=== PATIENT | male | born 1990 | race Hispanic/Latino ===

== ENCOUNTER 2024-01-02 12:31 | Emergency (ER) | payer BC, SELFPAY ==
[2024-01-02] MEDS ORDERED: ALPRAZOLAM 0.5 MG TABLET ONE (12:58)
--- NOTE | 2024-01-02 13:43 | EDPHYS ---
Physician Documentation [facility] Name: Negrito Walsh II Age: 33 yrs Sex: Male : 1990 Arrival Date: 01/02/2024 Time: 12:31 Bed 6 Private MD: ED Physician Barbara Carranza HPI: 01/01 13:05 This 33 yrs old Male presents to ER via Ambulatory with complaints of Chest sp3 Pain, High heart rate, Anxiety. 13:05 33-year-old male with no past medical history presents with anxiety and chest pain for sp3 the last 12 hours. Patient initially went to urgent care who advised him to come to the ED for further evaluation. He denies shortness of breath, prolonged travel, prolonged immobilization, known sick contacts, cough, congestion, headache, fever, abdominal pain, vomiting, diarrhea, syncope, near syncope, focal neurological deficit, trauma, or any other signs or symptoms on ROS at this time.. Historical: - Allergies: 12:49 No Known Allergies; cm10 - Home Meds: 12:49 None [Active]; cm10 - PMHx: 12:49 None; cm10 - PSHx: 12:49 None; cm10 - Immunization history:: Adult Immunizations up to date. - Infectious Disease History:: Denies. - Social history:: Smoking status: Reported history of juuling and/or vaping. ROS: 13:05 Constitutional: Negative for fever, chills, and weight loss, Eyes: Negative for injury, sp3 pain, redness, and discharge, Neck: Negative for injury, pain, and swelling, Respiratory: Negative for shortness of breath, cough, wheezing, and pleuritic chest pain, Abdomen/GI: Negative for abdominal pain, nausea, vomiting, diarrhea, and constipation, Back: Negative for injury and pain, MS/Extremity: Negative for injury and deformity, Skin: Negative for injury, rash, and discoloration, Neuro: Negative for headache, weakness, numbness, tingling, and seizure, Psych: Negative for depression, anxiety, suicide ideation, homicidal ideation, and hallucinations, Allergy/Immunology: Negative for hives, rash, and allergies, Endocrine: Negative for neck swelling, polydipsia, polyuria, polyphagia, and marked weight changes, 13:05 All other systems are negative, Exam: 13:05 Constitutional: This is a well developed, well nourished patient who is awake, alert, sp3 and in no acute distress. Head/Face: Normocephalic, atraumatic. Eyes: Pupils equal round and reactive to light, extra-ocular motions intact. Lids and lashes normal. Conjunctiva and sclera are non-icteric and not injected. Cornea within normal limits. Periorbital areas with no swelling, redness, or edema. ENT: Nares patent. No nasal discharge, no septal abnormalities noted. External auditory canals are clear. Oropharynx with no redness, swelling, or masses, exudates, or evidence of obstruction, uvula midline. Mucous membranes moist. Neck: Trachea midline, no thyromegaly or masses palpated, and no cervical lymphadenopathy. Supple, full range of motion without nuchal rigidity, or vertebral point tenderness. No Meningismus. Chest/axilla: Normal chest wall appearance and motion. Nontender with no deformity. No lesions are appreciated. Respiratory: Lungs have equal breath sounds bilaterally, clear to auscultation and percussion. No rales, rhonchi or wheezes noted. No increased work of breathing, no retractions or nasal flaring. Abdomen/GI: Soft, non-tender, with normal bowel sounds. No distension or tympany. No guarding or rebound. No evidence of tenderness throughout. Back: No spinal tenderness. No costovertebral tenderness. Full range of motion. Skin: Warm, dry with normal turgor. Normal color with no rashes, no lesions, and no evidence of cellulitis. MS/ Extremity: Pulses equal, no cyanosis. Neurovascular intact. Full, normal range of motion. Neuro: Awake and alert, GCS 15, oriented to person, place, time, and situation. Cranial nerves II-XII grossly intact. Motor strength 5/5 in all extremities. Sensory grossly intact. Cerebellar exam normal. Normal gait. 13:05 ECG was reviewed by the Attending Physician. EKG demonstrates sinus tachycardia 100 bpm with normal was, normal QRS, normal axis nonspecific diffuse ST's ST changes without evidence of acute ischemia. 13:21 Psych: Patient anxious. sp3 Vital Signs: 12:47 BP 148 / 88; Pulse 110; Resp 18; Temp 97.8(TE); Pulse Ox 100% on R/A; Weight 99.79 kg; cm10 Height 5 ft. 5 in. ; Pain 2/10; 13:15 BP 135 / 79; Pulse 80; Pulse Ox 95% on R/A; rs6 12:47 Body Mass Index 36.61 (99.79 kg, 165.1 cm) cm10 12:47 Pain Scale: Adult cm10 MDM: 12:46 Medical Screening Exam initiated sp3 13:21 Data reviewed: vital signs, nurses notes, lab test result(s), EKG, radiologic studies. sp3 ED course: 33-year-old male with anxiety and chest pain. I am not highly suspicious of acute coronary syndrome, PE, aortic pathology or vascular pathology, sepsis, shock or any other critical process. Workup will include EKG, chest x-ray and D-dimer and troponin. If workup negative we will set to discharge him home. Will also give Xanax for 0.5 mg p.o. for symptomatic relief.. 13:41 ED course: Chest x-ray and labs all normal including D-dimer and troponin. We will sp3 safely discharge patient home at this time.. 01/01 12:53 Order name: Troponin High Sensitivity; Complete Time: 13:41 sp3 01/01 12:53 Order name: D-Dimer; Complete Time: 13:41 sp3 01/01 12:46 Order name: XRAY Chest (1 view) sp3 01/01 12:46 Order name: EKG; Complete Time: 12:47 sp3 01/01 12:46 Order name: EKG - Nurse/Tech; Complete Time: 12:56 sp3 Administered Medications: 13:00 Drug: ALPRAZolam PO Tablet 0.5 mg PO once Route: PO; bp 13:56 Follow up: Response: No adverse reaction bp Disposition Summary: 01/02/24 13:42 Discharge Ordered Notes: Location: Home sp3 Condition: Stable sp3 Diagnosis - Anxiety, chest pain sp3 Followup: sp3 - With: Private Physician - When: Upon discharge from the Emergency Department - Reason: Continuance of care Discharge Instructions: - Discharge Summary Sheet sp3 - Managing Anxiety, Adult sp3 Forms: - Work release form bd - SBAR form bd - Medication Reconciliation Form sp3 - Antibiotic Education sp3 - Prescription Opioid Use sp3 - Patient Portal Instructions sp3 - Leadership Thank You Letter sp3 Signatures: Dispatcher [employer] EDJesus Stein, RN RN bp Barbara Carranza MD MD sp3 Shannon Villanueva, ROBBY RN cm10
--- NOTE | 2024-01-02 13:43 | ER ---
Nurse's Notes [facility] Name: Negrito Walsh II Age: 33 yrs Sex: Male : 1990 Arrival Date: 01/02/2024 Time: 12:31 Bed 6 Private MD: Diagnosis: Anxiety, chest pain Presentation: 01/01 12:47 Chief complaint: Patient states: Started having abdominal pain while at work and on his cm10 way home he started having chest pain and he felt his heart start racing. Pt states, "I think I am having a panic attack.". Coronavirus screen: Client denies travel out of the [place] in the last 14 days. Ebola Screen: Patient denies travel to an Ebola-affected area in the 21 days before illness onset. No symptoms or risks identified at this time. Initial Sepsis Screen: Does the patient meet any 2 criteria? HR > 90 bpm. Does the patient have a suspected source of infection? No. Patient's initial sepsis screen is negative. Risk Assessment: Do you want to hurt yourself or someone else? Patient reports no desire to harm self or others. Onset of symptoms was January 02, 2024. 12:47 Method Of Arrival: Ambulatory cm10 12:47 Acuity: ARNOLDO 3 cm10 Triage Assessment: 12:49 General: Appears in no apparent distress. comfortable, Behavior is anxious. Neuro: No cm10 deficits noted. Level of Consciousness is awake, alert, obeys commands, Oriented to person, place, time, situation, Appropriate for age. Respiratory: No deficits noted. Airway is patent Respiratory effort is even, unlabored, Respiratory pattern is regular, symmetrical. Historical: - Allergies: 12:49 No Known Allergies; cm10 - Home Meds: 12:49 None [Active]; cm10 - PMHx: 12:49 None; cm10 - PSHx: 12:49 None; cm10 - Immunization history:: Adult Immunizations up to date. - Infectious Disease History:: Denies. - Social history:: Smoking status: Reported history of juuling and/or vaping. Screenin:00 [facility] ED Fall Risk Assessment (Adult) History of falling in the last 3 months, bp including since admission No falls in past 3 months (0 pts) Confusion or Disorientation No (0 pts) Intoxicated or Sedated No (0 pts) Impaired Gait No (0 pts) Mobility Assist Device Used No (0 pt) Altered Elimination No (0 pt) Score/Fall Risk Level 0 - 2 = Low Risk. Abuse screen: Denies threats or abuse. Denies injuries from another. Nutritional screening: No deficits noted. Tuberculosis screening: No symptoms or risk factors identified. Assessment: 13:00 General: Appears in no apparent distress. Behavior is cooperative, appropriate for age, bp anxious. Pain: Pain does not radiate. Pain began 1 day ago. Neuro: No deficits noted. Cardiovascular: Rhythm is sinus tachycardia. Respiratory: No deficits noted. GI: No signs and/or symptoms were reported involving the gastrointestinal system. : No signs and/or symptoms were reported regarding the genitourinary system. EENT: No deficits noted. Derm: No deficits noted. Musculoskeletal: No deficits noted. Vital Signs: 12:47 BP 148 / 88; Pulse 110; Resp 18; Temp 97.8(TE); Pulse Ox 100% on R/A; Weight 99.79 kg; cm10 Height 5 ft. 5 in. ; Pain 2/10; 13:15 BP 135 / 79; Pulse 80; Pulse Ox 95% on R/A; rs6 12:47 Body Mass Index 36.61 (99.79 kg, 165.1 cm) cm10 12:47 Pain Scale: Adult cm10 ED Course: 12:34 Patient arrived in ED. im 12:35 Barbara Carranza MD is Attending Physician. sp3 12:49 Triage completed. cm10 12:49 Arm band placed on Patient placed in an exam room, on a stretcher. EKG completed in cm10 triage. Results shown to MD. 12:50 EKG done, by ED staff, reviewed by Barbara Carranza MD. cm10 12:55 Jesus Ricardo, RN is Primary Nurse. bp 13:00 Patient has correct armband on for positive identification. Client placed on continuous bp cardiac and pulse oximetry monitoring. NIBP monitoring applied. panel monitor on. Pulse ox on. NIBP on. 13:14 Inserted saline lock: 20 gauge in right antecubital area, using aseptic technique. rs6 Blood collected. Flushed with 10 mL NS. 13:24 XRAY Chest (1 view) In Process Unspecified. EDMS 13:29 Patient maintains SpO2 saturation greater than 95% on room air. ph 13:56 No provider procedures requiring assistance completed. IV discontinued, intact, bp bleeding controlled, No redness/swelling at site. Pressure dressing applied. Administered Medications: 13:00 Drug: ALPRAZolam PO Tablet 0.5 mg PO once Route: PO; bp 13:56 Follow up: Response: No adverse reaction bp Medication: 13:29 VIS not applicable for this client. ph Outcome: 13:42 Discharge ordered by MD. mosqueda 13:56 Discharged to home ambulatory, bp 13:56 Condition: stable 13:56 Discharge instructions given to patient, Instructed on discharge instructions, follow up and referral plans. Demonstrated understanding of instructions, follow-up care, 13:57 Patient left the ED. bp Signatures: Dispatcher [employer] EDKorina Topete RN RN Jesus Mccartney RN RN Barbara Sanchez MD MD sp3 Brenda Chow Clarissa RN RN cmMoshe Mir rs6
[2024-01-02 14:15] VITALS: TEMP 97.8
[2024-01-02 14:20] VITALS: BP 135/79; O2SAT 95
--- NOTE | 2024-01-02 15:13 | RAD REPORT ---
EXAMINATION: ONE VIEW CHEST XR CLINICAL INDICATION: Male, 33 years old.,CHEST PAIN TECHNIQUE: Frontal chest projection is submitted. Examination is limited by patient positioning and t echnique. COMPARISON: 03/23/2016 FINDINGS: The lungs are well inflated and clear. No pneumothorax or sizable effusion. The heart is normal in s ize. Mediastinal contours are unremarkable. IMPRESSION: No acute intrathoracic abnormalities.
== END 2024-01-02 13:57 | disposition home or self-care (01) ==
LOC: ER 12:31
DX: F41.9 Anxiety disorder, unspecified (principal)
CPT/HCPCS: 36415; 71045; 84484; 85379